=== PATIENT | male | born 1980 | race Caucasian/White ===

== ENCOUNTER 2020-08-08 12:53 | Emergency (ER) | payer SELFPAY ==
[~2020-08-08] VITALS: Ht 167.6 cm; Wt 76.2 kg
[2020-08-08 13:02] VITALS: BP 120/55
--- NOTE | 2020-08-08 13:20 | NUR ---
MD AT BEDSIDE AT FOR ASSESSMENT AND TO DISUCSS PLAN OF CARE
--- NOTE | 2020-08-08 13:29 | NUR ---
PT COMES IN TODAY C/O DEPRESSION DUE TO MULTIPLE FAMILY DEATHS W/IN THE PAST YEAR. PT DENIES SI/HI. PT STATES " I JUST NEEDED TO GET AWAY AND GET HELP SO ME AND MY CAN TALK TO A COUSELOR AND GET THING FIGURED OUT. I DONT WANT MEDS OR ANTHING". WATER PROVIDED. PER PROVIDER, MONITORS NOT NEEDED AT THIS TIME.
--- NOTE | 2020-08-08 14:05 | NUR ---
JEN AT BEDSIDE FOR ASSESSMENT.
== END 2020-08-08 14:28 | disposition home or self-care (01) ==
LOC: ED 14:24
DX: F43.21 Adjustment disorder with depressed mood (principal); F17.200 Nicotine dependence, unspecified, uncomplicated
CPT/HCPCS: 99284